=== PATIENT | female | born 1980 | race Caucasian/White ===

== ENCOUNTER 2016-12-18 11:59 | Emergency (ER) | payer SELFPAY ==
[~2016-12-18] VITALS: Ht 157.5 cm; Wt 66.7 kg
[~2016-12-18 11:59] MED LIST: ANAPROX DS550 MG PO; FLOMAX0.4 MG PO; IBUPROFEN400 MG PO; IBUPROFEN600 MG PO; KEFLEX500 MG PO; PERCOCET 5-3251 EACH PO; TRAMADOL HCL50 MG PO; ZOFRAN ODT4 MG PO
== END 2016-12-18 12:18 | disposition home or self-care (01) ==
LOC: ED 11:59
DX: Z00.8 Encounter for other general examination (principal)

== ENCOUNTER 2020-07-06 14:50 | Emergency (ER) | payer BC ==
[~2020-07-06] VITALS: Ht 157.5 cm; Wt 66.7 kg
--- NOTE | 2020-07-07 16:57 | EKG ---
[facility] [address] [facility] [place], [place] [address] Signed Sinus tachycardia Otherwise normal ECG No previous ECGs available Confirmed by PEGGY THOMPSON MD ([id number]) on 07/07/2020 4:56:49 PM Electronically Signed By: PEGGY THOMPSON MD 07/07/20 1657 PATIENT NAME: DEEPAK LAMB GANESH Electrocardiogram DATE OF : 82 PHYSICIAN: PEGGY THOMPSON MD REPORT #: [id number] REPORT IS CONFIDENTIAL AND NOT TO BE RELEASED WITHOUT AUTHORIZATION
== END 2020-07-06 16:15 | disposition home or self-care (01) ==
LOC: ED 14:50
DX: F41.9 Anxiety disorder, unspecified (principal); R00.0 Tachycardia, unspecified; F17.200 Nicotine dependence, unspecified, uncomplicated; Z88.5 Allergy status to narcotic agent
CPT/HCPCS: 71045; 80048; 84484; 85025; 93005; 93010; 99285-25; 99406

== ENCOUNTER 2021-07-01 07:58 | Emergency (ER) | payer SELFPAY ==
[~2021-07-01] VITALS: Ht 157.5 cm; Wt 59.0 kg
[2021-07-01] MEDS ORDERED: CEPHALEXIN500 M1 PO (10:24)
[2021-07-01] MEDS ORDERED: NAPROSYN500 MG PO (10:24)
[2021-07-01] MEDS ORDERED: ONDANSETRON ODT8 MG PO (10:24)
== END 2021-07-01 11:00 | disposition home or self-care (01) ==
LOC: ED 07:58
DX: N12 Tubulo-interstitial nephritis, not specified as acute or chronic (principal); Z88.5 Allergy status to narcotic agent; F17.200 Nicotine dependence, unspecified, uncomplicated
CPT/HCPCS: 36415; 74176; 80053; 81001; 84703; 85025; 87088; 96361; 96365; 96375; 99284-25; J0696; J1885; J2405; J7030

== ENCOUNTER → 2022-12-22 | Emergency (ER) | payer OTHER ==
[~2022-12-22] VITALS: Ht 157.5 cm; Wt 59.0 kg
[~2022-12-22] MED LIST changes: +CEPHALEXIN500 M1 PO; +HYDROCODON-ACE1 EA10 PO; +NAPROSYN500 MG PO; +ONDANSETRON ODT8 MG PO
[2022-12-22 14:37] VITALS: BP 105/68
== END ==
LOC: ED 11:49
DX: S62.336A Displaced fracture of neck of fifth metacarpal bone, right hand, initial encounter for closed fracture (principal); F17.200 Nicotine dependence, unspecified, uncomplicated; Z88.5 Allergy status to narcotic agent; W22.8XXA Striking against or struck by other objects, initial encounter
CPT/HCPCS: 29125; 73130; 99283 25

== ENCOUNTER 2023-05-09 05:43 | Day surgery (SDC) | payer OTHER ==
[2023-05-01 14:55] VITALS: BP 120/82
[~2023-05-09] VITALS: Ht 160 cm; Wt 57.0 kg
--- NOTE | ~2023-05-09 | OR ---
[facility] [address] [place] [id number] Draft DATE OF OPERATION: 05/09/2023 SURGEON: Maryann Montana DO PREOPERATIVE DIAGNOSES: 1. Abnormal uterine bleeding. 2. Dysmenorrhea. 3. Adenomyosis. POSTOPERATIVE DIAGNOSES: 1. Abnormal uterine bleeding. 2. Dysmenorrhea. 3. Adenomyosis. PROCEDURES PERFORMED: 1. Total laparoscopic hysterectomy. 2. Bilateral salpingectomy. 3. Cystoscopy. CONSTRUCTION MANAGEMENT ASSISTANT: Nataliya Puckett MD. ANESTHESIA: General. ESTIMATED BLOOD LOSS: 20 mL. SPECIMENS: Uterus, cervix, and bilateral fallopian tubes. DRAINS: Dumont to gravity. FINDINGS: Normal external genitalia with normal clitoris, urethral meatus, bilateral [place] Bartholin's glands. Normal vagina and cervix. On laparoscopy, normal upper quadrants bilaterally and normal pelvis with normal uterus, tubes, and ovaries and no evidence of endometriosis. Hemostasis with excellent apical support at the end of the procedure. On cystoscopy, normal bladder with bilateral ureteral jets. PATIENT NAME: DEEPAK LAMB OPERATIVE REPORT DATE OF : 82 REPORT #: [id number] PHYSICIAN: MARYANN MONTANA (PHILIPP) PCP: MARQUIS SILVER REPORT IS CONFIDENTIAL AND NOT TO BE RELEASED WITHOUT AUTHORIZATION [facility] [address] [place] [id number] Draft COMPLICATIONS: None. INDICATIONS: Ms. Lamb is a very pleasant 42-year-old female with a long history of abnormal uterine bleeding and dysmenorrhea, suspicious for adenomyosis. She has failed conservative measures and requests definitive treatment for laparoscopic hysterectomy, bilateral salpingectomy, and cystoscopy. Risks, benefits, and alternatives were discussed in detail with the patient. The patient understands and wished to proceed with the procedure. PROCEDURE IN DETAIL: The patient was taken to the operating room where a time-out was performed to confirm correct patient and correct procedure. General anesthesia was adequately established. The patient was prepped and draped in the dorsal lithotomy position with feet in Yellofin stirrups. ICPs are running and no preoperative heparin was indicated. She did receive Ancef 2 g preoperatively per SCIP protocol. A Dumont catheter was inserted. A weighted speculum was placed in vagina and the anterior lip of the cervix was grasped with Allis clamp. The cervix serially dilated using Hegar dilators and a VCare uterine manipulator was placed without difficulty. The surgeon's gloves were changed. Attention was turned to the abdomen. Previous laparoscopic scar just inferior to the umbilicus was infiltrated with 0.25% Marcaine with epinephrine and incised using 11 blade. The fascia was grasped, elevated, and entered sharply with Metzenbaum scissors. Stay sutures of 0 Vicryl placed in the superior and inferior edge of the fascial incision. The peritoneum was then entered bluntly and a Vaca operative port was placed without difficulty. Pneumoperitoneum was established with low opening pressures. A 5 mm assist port was placed in the left lower quadrant under direct visualization without complication. An 8 mm expanding port was placed in the right lower quadrant under direct visualization without complication. Attention was turned to hysterectomy. The left fallopian tube was grasped at the fimbriated end elevated and dissected along the mesosalpinx and delivered and sent to pathology for further evaluation. The left uteroovarian ligament was fulgurated and divided with excellent hemostasis. The left round ligament was fulgurated and divided with excellent hemostasis. The left broad ligament was dissected from the midportion of the round ligament to the edge of the vaginal cup anteriorly and to the angle of the uterosacral ligament posteriorly. Dissection of the peritoneum was carried circumferentially around the edges of the vaginal cup and the uterine vessels were identified. Uterine vessels were then fulgurated and divided with excellent hemostasis. The process was repeated on the right side with division of the fallopian tube along the mesosalpinx, division of the uteroovarian ligament, round ligaments. The broad ligament was dissected also from the midportion of the round to the uterosacral ligament posteriorly and the edge of the PATIENT NAME: DEEPAK LAMB OPERATIVE REPORT DATE OF : 82 REPORT #: [id number] PHYSICIAN: MARYANN MONTANA (PHILIPP) PCP: MARQUIS SILVER REPORT IS CONFIDENTIAL AND NOT TO BE RELEASED WITHOUT AUTHORIZATION [facility] [address] [place] [id number] Draft vaginal cup anteriorly. The peritoneal dissection was mobilized well inferior to the vaginal cup and a uterine vessels fulgurated and divided with excellent hemostasis. Sonicision device was used to perform circumferential colpotomy and the uterus and cervix were delivered and sent to pathology for further evaluation. Pneumoperitoneum was reestablished by placing a wet lap sponge inside of a glove, stuffiness inside the vagina. The pelvis was irrigated and found to be hemostatic. Colpotomy was repaired using V-Loc suture with an Endostitch device with excellent hemostasis and apical support. Careful attention to incorporate the uterosacral ligaments bilaterally as well as the vaginal epithelium with each bite. The pelvis was again irrigated, found to be hemostatic. A small amount of oozing was noted from the right trocar site and this was made hemostatic with a Francisco-Krystyna device suture. The trocars removed. Pneumoperitoneum was reduced and infraumbilical fascial incision was reapproximated using 0 Vicryl in a running nonlocked manner. Stay sutures were also plicated in midline to reinforce this closure. Skin was reapproximated using 4-0 Monocryl in a subcuticular stitch with excellent hemostasis. Attention was then turned to cystoscopy. The Dumont was removed and a 70-degree cystoscope was placed in the urethral meatus and advanced under direct visualization of the bladder. Normal bladder with bilateral ureteral jets was appreciated. The bladder was drained. Dumont catheter was reinserted. The patient was taken to PACU in good and stable condition. Sponge, needle and instrument count were correct x2 at the end of the procedure. Dr. Puckett was present and participated in all portions of procedure. Maryann Montana DO JMOR/STEPHIE /[id number] Copies: ~ PATIENT NAME: DEEPAK LAMB OPERATIVE REPORT DATE OF : [birth year] REPORT #: [id number] PHYSICIAN: MARYANN MONTANA (PHILIPP) DO PCP: MARQUIS SILVER REPORT IS CONFIDENTIAL AND NOT TO BE RELEASED WITHOUT AUTHORIZATION
[2023-05-09 06:00] VITALS: BP 107/72
[2023-05-09 10:30] VITALS: BP 98/51
[2023-05-09 11:28] VITALS: BP 99/64
[2023-05-09 12:25] VITALS: BP 107/67
[2023-05-09 13:23] VITALS: BP 128/94
--- NOTE | 2023-05-11 14:57 | PATH ---
[facility] [address] [place], [place] [address] Signed SPECIMEN(S): A UTERUS, CERVIX, BILATERAL TUBES SPECIMEN SOURCE: A. UTERUS, CERVIX, BILATERAL TUBES CLINICAL HISTORY: Adenomyosis of uterus. FINAL PATHOLOGIC DIAGNOSIS: Uterus, cervix, bilateral tubes: - Benign proliferative endometrium, negative for hyperplasia or atypia. - Endometrial adenomyosis. - Benign endo- and ectocervix. - Benign bilateral oviducts. VíctorVR:oniel MICROSCOPIC EXAMINATION: Histologic sections of all submitted blocks are examined by light microscopy. These findings, together with the gross examination, support the pathologic diagnosis. GROSS DESCRIPTION: The specimen, labeled and designated "Eulalio, uterus and cervix with bilateral fallopian tubes," is received in formalin and consists of uterus and cervix with undesignated and fallopian tubes. The uterus measures 5.2 cm from cornu to cornu, 4.5 cm anterior to posterior and 7.7 cm from cervix to fundus. The serosal surface is pink-ford, smooth. The uterus weighs 132 grams. The ectocervix is pink-ford, focally congested and measures 3.7 x 3.7 cm. Sectioning through the cervix reveals several Nabothian cysts that range in size from 0.3 to 0.6 cm. Cervical neck shows cysts that measures 0.7 cm in diameter. The cyst is filled with a hemorrhagic fluid. The endometrial cavity is irregularly shaped and measures 2.5 x 2.0 cm. Sectioning through myometrium reveals ill-defined pink-ford nodule that measures 1.1 cm in greatest dimension. The reminder of the myometrium shows trabeculated surface. The myometrium measures 2.2 cm in thickness. The endometrium measures up to 0.2 cm in thickness. Both fallopian tubes show fimbria and violaceous and smooth serosa. The first fallopian tube measures 3 cm in length and 0.8 cm in diameter. The second fallopian PATIENT NAME: DEEPAK LAMB PATHOLOGY DATE OF : 82 REPORT #: [id number] PHYSICIAN: CHAY REMY PCP: MARQUIS SILVER REPORT IS CONFIDENTIAL AND NOT TO BE RELEASED WITHOUT AUTHORIZATION [facility] [address] [place], [place] [address] Signed tube measures 4.2 cm in length and 0.7 cm in diameter. Cassette Summary: (A1) cervix, account manager sales representative sections, posterior inked (A2) cervical neck cyst, account manager sales representative section (A3) endomyometrium, account manager sales representative sections (A4) myometrial ill-defined nodule, account manager sales representative section (A5) first fallopian tube, account manager sales representative sections (A6) second fallopian tube, account manager sales representative sections JS (under the direct supervision of a pathologist) The Gross Description was prepared using a voice recognition system. The report was reviewed for accuracy; however, sound-alike word errors, addition and/or deletions may occur. If there is any question about this report, please contact Client Services. PERFORMING LABORATORY: Technical component was performed by [facility], [address] [place] [id number] (CLIA# [id number]). Professional interpretation was performed by [facility], [address] [place] [id number] (CLIA#: [id number]). Diagnostician: Mathieu Hamilton MD Pathologist Electronically Signed 05/11/2023 Copies: ~ PATIENT NAME: DEEPAK LAMB PATHOLOGY DATE OF : 82 REPORT #: [id number] PHYSICIAN: CHAY REMY PCP: MARQUIS SILVER REPORT IS CONFIDENTIAL AND NOT TO BE RELEASED WITHOUT AUTHORIZATION
== END 2023-05-09 13:30 | disposition home or self-care (01) ==
LOC: DS 05:43
PROVIDERS: ATTEND Obstetrics & Gynecology
PROC: 0UT94ZZ Resection of Uterus, Percutaneous Endoscopic Approach (ICD-10-PCS; principal; 2023-05-09 07:30)
PROC: 0UT74ZZ Resection of Bilateral Fallopian Tubes, Percutaneous Endoscopic Approach (ICD-10-PCS; 2023-05-09 07:30)
DX: N80.03 Adenomyosis of the uterus (principal); N93.9 Abnormal uterine and vaginal bleeding, unspecified; N94.6 Dysmenorrhea, unspecified; G43.909 Migraine, unspecified, not intractable, without status migrainosus
CPT/HCPCS: 00840; J0131; J0690; J1100; J1885; J2250; J2371; J2405; J2704; J3010; J3490; J7121